=== PATIENT | female | born 1985 | race Caucasian/White ===

== ENCOUNTER 2016-08-08 21:32 | Emergency (ER) | payer OTHER ==
[2016-08-09 00:43] VITALS: BP 132/92
== END 2016-08-09 00:43 | disposition home or self-care (01) ==
LOC: ED 21:32
DX: G43.909 Migraine, unspecified, not intractable, without status migrainosus (principal); N80.9 Endometriosis, unspecified; R03.0 Elevated blood-pressure reading, without diagnosis of hypertension; Z79.899 Other long term (current) drug therapy
CPT/HCPCS: 87491; 87591; J1885; J2270

== ENCOUNTER 2019-10-27 22:00 | Emergency (ER) | payer OTHER ==
[~2019-10-27] VITALS: Ht 165.1 cm; Wt 104.3 kg
[2019-10-27 22:27] VITALS: Ht 165.1 cm; Wt 104.3 kg
[2019-10-28 00:25] VITALS: BP 155/71
== END 2019-10-28 00:25 | disposition home or self-care (01) ==
LOC: ED 22:00
DX: S81.811A Laceration without foreign body, right lower leg, initial encounter (principal); G43.909 Migraine, unspecified, not intractable, without status migrainosus; W26.0XXA Contact with knife, initial encounter; Y93.89 Activity, other specified; Y92.89 Other specified places as the place of occurrence of the external cause; Y99.8 Other external cause status

== ENCOUNTER 2020-02-27 16:14 | Emergency (ER) | payer OTHER ==
[~2020-02-27] VITALS: Ht 165.1 cm; Wt 114.3 kg
[2020-02-27 16:32] VITALS: Ht 165.1 cm; Wt 114.3 kg
[2020-02-27 20:34] LABS: PLATELET COUNT 307 x10^3mcL (130-400); RED CELL DISTRIBUTION WIDTH 12.7 % (11.5-14.5)
[2020-02-27 21:01] LABS: ALBUMIN 3.7 g/dL (3.4-5.0); ALKALINE PHOSPHATASE 76 U/L (46-116); ALT/SGPT 93 U/L (14-59); AST/SGOT 78 U/L (15-37); BILIRUBIN TOTAL 0.37 mg/dL (0.20-1.00); CALCIUM 8.7 mg/dL (8.5-10.1); CARBON DIOXIDE 23.9 mmol/L (21-32); CHLORIDE SERUM 105 mmol/L (98-107); CHOLESTEROL 176 mg/dL (<200); CHOLESTEROL/HDL RATIO 3.3; CREATININE SERUM 0.7 mg/dL (0.6-1.0); GFR1 > 60 mL/min; GLUCOSE SERUM 99 mg/dL (74-106); HDL CHOLESTEROL 54 mg/dL (40-60); LIPASE 191 IU/L (73-393); SODIUM SERUM 140 mmol/L (136-145); TRIGLYCERIDES 150 mg/dL (<150)
[2020-02-27 21:04] LABS: TOTAL PROTEIN, SERUM 8.4 g/dL (6.4-8.2)
[2020-02-27 23:07] VITALS: BP 142/76
== END 2020-02-27 23:07 | disposition home or self-care (01) ==
LOC: ED 16:14
PROVIDERS: Specialist
DX: M51.86 Other intervertebral disc disorders, lumbar region (principal); G43.909 Migraine, unspecified, not intractable, without status migrainosus
CPT/HCPCS: J1885; J2270; J2405; J3010; J7030